=== PATIENT | male | born 1970 | race African-American/Black ===

== ENCOUNTER 2016-04-28 11:49 | Emergency (ER) | payer OTHER ==
[~2016-04-28] VITALS: Ht 182.9 cm; Wt 140.6 kg
[~2016-04-28 11:49] MED LIST: ALBUTEROL0.09 MG/A1 INH; AMLODIPINE BESY10 M1 PO; AMOXIL500 MG PO; ATENOLOL25 MG PO; AUGMENTIN 875-1 EACH PO; CYCLOBENZAPRINE10 M1 PO; GABAPENTIN400 M2 PO; HYDROCHLOROTHIA25 MG PO; HYDRODIURIL 2525 MG PO; NEURONTIN300 MG PO; OXYCODONE-ACET1 EAC1 PO; PERCOCET 325 MG1 TA2 PO; PREDNICOT20 MG PO; PRINIVIL20 M1 PO; Prinivil PO; TESSALON PERLE100 MG PO; TRANDATE100 MG PO; TYLENOL XSTR500 MG PO; VALIUM5 M1 PO; ZITHROMAX250 MG PO
[2016-04-28] MEDS ORDERED: LABETALOL HCL100 M1 PO ×2 (12:18→12:30)
[2016-04-28] MEDS ORDERED: AUGMENTIN 875-1 EACH PO (12:30)
[2016-04-28] MEDS ORDERED: NORVASC10 M1 PO (12:30)
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
[2016-04-28 12:51] VITALS: BP 140/100
[2016-05-20] MEDS ORDERED: MEDROL4 M2 PO (09:55)
[2016-05-20] MEDS ORDERED: NORCO 5-325 TA1 EACH PO (09:55)
== END 2016-04-28 12:52 ==
LOC: ERH 11:49
DX: J32.9 Chronic sinusitis, unspecified (principal); I10 Essential (primary) hypertension; Z72.0 Tobacco use

== ENCOUNTER 2016-05-18 08:34 | Emergency (ER) | payer OTHER ==
[~2016-05-18] VITALS: Ht 182.9 cm; Wt 140.6 kg
[~2016-05-18 08:34] MED LIST changes: +LABETALOL HCL100 M1 PO; +NORVASC10 M1 PO
[2016-05-18 08:37] VITALS: BP 137/88
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
[2016-05-18] MEDS ORDERED: COLCHICINE0.6 M3 PO (09:24)
[2016-05-18] MEDS ORDERED: PERCOCET 5-3251 EACH PO (09:24)
--- NOTE | 2016-05-18 09:36 | RADIOLOGY REPORT ---
EXAMINATION: XR FOOT, RIGHT CLINICAL INFORMATION: First metatarsal pain COMPARISON: None TECHNIQUE: AP, lateral, and oblique views of the right foot. FINDINGS: There is a hallux valgus deformity with mild degenerative changes. No acute osseous finding. IMPRESSION: Hallux valgus deformity with degenerative disease
[2016-05-20] MEDS ORDERED: MEDROL4 M2 PO (09:55)
[2016-05-20] MEDS ORDERED: NORCO 5-325 TA1 EACH PO (09:55)
== END 2016-05-18 09:36 ==
LOC: ERH 08:34
DX: M10.9 Gout, unspecified (principal)
CPT/HCPCS: 73630-RT

== ENCOUNTER 2016-06-27 17:29 | Emergency (ER) | payer OTHER ==
[~2016-06-27] VITALS: Ht 182.9 cm; Wt 142.9 kg
[~2016-06-27 17:29] MED LIST changes: +COLCHICINE0.6 M3 PO; +MEDROL4 M2 PO; +NORCO 5-325 TA1 EACH PO; +PERCOCET 5-3251 EACH PO
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
[2016-06-27] MEDS ORDERED: MOBIC15 M1 PO (19:39)
[2016-06-27] MEDS ORDERED: PERCOCET 5-3251 EACH PO (19:39)
[2016-06-27 19:40] VITALS: BP 137/87
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
== END 2016-06-27 20:02 ==
LOC: ERH 17:29
DX: M67.442 Ganglion, left hand (principal); G89.29 Other chronic pain
CPT/HCPCS: 73130-LT

== ENCOUNTER 2017-02-03 15:31 | Emergency (ER) | payer OTHER ==
[~2017-02-03] VITALS: Ht 182.9 cm; Wt 140.6 kg
[~2017-02-03 15:31] MED LIST changes: +MOBIC15 M1 PO; +ULTRAM50 M1 PO
[2017-02-03 15:38] VITALS: BP 169/106
[2017-02-03 16:07] LABS: ABSOLUTE BASOPHIL COUNT 0 /CUMM (0.0-0.2); ABSOLUTE EOSINOPHIL COUNT 0 /CUMM (0.0-0.7); ABSOLUTE GRANULOCYTE CT 8.5 /CUMM (1.4-6.5); ABSOLUTE LYMPH COUNT 1.8 /CUMM (1.2-3.4); ABSOLUTE MONOCYTE COUNT 0.8 /CUMM (0.10-0.60); BASOPHIL % 0.4 % (0.0-2.0); EOSINOPHIL % 0 % (0-5); MEAN CORPUSCULAR HGB 30.4 PG (27.0-31.0); MEAN CORPUSCULAR HGB CONC 33.1 G/DL (33.0-37.0); MEAN CORPUSCULAR VOLUME 91.8 FL (80.0-94.0); MEAN PLATELET VOLUME 8.9 FL (7.4-10.4); PLATELET COUNT 222 /CUMM (130-400); RBC DISTRIBUTION WIDTH 14.5 % (11.5-14.5); RED BLOOD CELL CT 5.23 /CUMM (4.70-6.10); WHITE BLOOD CELL COUNT 11.1 /CUMM (4.8-10.8)
== END 2017-02-03 15:54 | disposition admitted as inpatient to this hospital (09) ==
LOC: ERH 15:31
PROVIDERS: Emergency Medicine
DX: R11.2 Nausea with vomiting, unspecified (principal); R19.7 Diarrhea, unspecified; I10 Essential (primary) hypertension; R10.9 Unspecified abdominal pain
CPT/HCPCS: 93005; 93010; 99281

== ENCOUNTER 2017-05-02 19:22 | Inpatient (IN) | payer OTHER ==
[~2017-05-02] VITALS: Ht 185.4 cm; Wt 129.7 kg
[2017-05-02 20:42] LABS: ABSOLUTE BASOPHIL COUNT 0.1 /CUMM (0.0-0.2); ABSOLUTE EOSINOPHIL COUNT 0 /CUMM (0.0-0.7); ABSOLUTE GRANULOCYTE CT 7.4 /CUMM (1.4-6.5); ABSOLUTE LYMPH COUNT 2.5 /CUMM (1.2-3.4); ABSOLUTE MONOCYTE COUNT 0.9 /CUMM (0.10-0.60); BASOPHIL % 0.5 % (0.0-2.0); EOSINOPHIL % 0.1 % (0-5); HEMATOCRIT 42.3 % (42-52); MEAN CORPUSCULAR HGB 30.5 PG (27.0-31.0); MEAN CORPUSCULAR HGB CONC 32.8 G/DL (33.0-37.0); MEAN CORPUSCULAR VOLUME 92.9 FL (80.0-94.0); MEAN PLATELET VOLUME 8.8 FL (7.4-10.4); PLATELET COUNT 198 /CUMM (130-400); RBC DISTRIBUTION WIDTH 15.1 % (11.5-14.5); RED BLOOD CELL CT 4.55 /CUMM (4.70-6.10); WHITE BLOOD CELL COUNT 10.9 /CUMM (4.8-10.8)
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
--- NOTE | 2017-05-03 00:42 | RADIOLOGY REPORT ---
EXAMINATION: CHEST 1 VIEW CLINICAL INFORMATION: Chest pain. COMPARISON: 06/12/2015. TECHNIQUE: An AP view of the chest is provided. FINDINGS: The cardiac silhouette is stable. The mediastinal and hilar contours are unremarkable. There are neither pleural effusions nor pneumothoraces. There are no consolidations. The osseous structures are unremarkable. IMPRESSION: No evidence for acute disease.
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
[2017-05-03] MEDS ORDERED: GABAPENTIN100 M2 PO (03:15)
[2017-05-03] MEDS ORDERED: LABETALOL HCL200 M1 PO ×2 (03:16→13:47)
[2017-05-03] MEDS ORDERED: METFORMIN HCL500 M3 PO (03:17)
[2017-05-03] MEDS ORDERED: OXYCODONE HCL10 M2 PO (03:18)
[2017-05-03 08:29] LABS: ABSOLUTE BASOPHIL COUNT 0 /CUMM (0.0-0.2); ABSOLUTE EOSINOPHIL COUNT 0 /CUMM (0.0-0.7); ABSOLUTE GRANULOCYTE CT 5.7 /CUMM (1.4-6.5); ABSOLUTE LYMPH COUNT 3.4 /CUMM (1.2-3.4); BASOPHIL % 0.3 % (0.0-2.0); EOSINOPHIL % 0 % (0-5); GRANULOCYTE % 56.2 % (42.2-75.2); HEMATOCRIT 38.6 % (42-52); MEAN CORPUSCULAR HGB CONC 33.4 G/DL (33.0-37.0); MEAN CORPUSCULAR VOLUME 92.7 FL (80.0-94.0); MEAN PLATELET VOLUME 9.3 FL (7.4-10.4); PLATELET COUNT 187 /CUMM (130-400); RBC DISTRIBUTION WIDTH 14.9 % (11.5-14.5); RED BLOOD CELL CT 4.16 /CUMM (4.70-6.10); WHITE BLOOD CELL COUNT 10.1 /CUMM (4.8-10.8)
--- NOTE | 2017-05-03 11:19 | PN- Att Addend ---
Attending Addendum Attending Brief Note Patient was admitted early this morning for chest pain. Chest pain has improved. His troponin have been negative. His blood pressure was noted to be elevated up to systolic 172. His chest exam is clear. He is slightly tender in the left pectoral area. Left arm has muscle wasting. Plan Obtain cardiac consult Chemical stress test tomorrow Restart hypertension medications and monitor blood pressure Telemetry monitoring Plan is to discharge him home after stress test tomorrow Continue his home dose of oxycodone Current Medications Sig/Yocasta Start time Last Medication Dose Route Stop Time Status Admin Acetaminophen 650 MG Q6P PRN 05/03 0215 AC PO Amlodipine Besylate 10 MG DAILY 05/03 1000 AC 05/03 PO 0957 Amlodipine Besylate 0 .STK-MED ONE 05/03 0911 DC PO Aspirin 81 MG DAILY 05/03 1000 AC 05/03 PO 0957 Aspirin 0 .STK-MED ONE 05/03 0957 DC PO Atorvastatin Calcium 20 MG 1700 05/03 1700 DC PO Atorvastatin Calcium 40 MG 1700 05/03 1700 AC PO Enoxaparin Sodium 40 MG DAILY 05/03 1000 AC 05/03 SC 1023 Enoxaparin Sodium 0 .STK-MED ONE 05/03 0911 DC SC Gabapentin 300 MG TID 05/03 1000 AC 05/03 PO 0957 Gabapentin 0 .STK-MED ONE 05/03 0912 DC PO Insulin Aspart 0 TIDAC 05/03 0800 AC SC Labetalol HCl 200 MG BID 05/03 2200 AC PO Labetalol HCl 200 MG DAILY 05/03 1000 DC 05/03 PO 0957 Oxycodone HCl 0 .STK-MED ONE 05/03 0619 DC PO Oxycodone HCl 10 MG Q6P PRN 05/03 0330 AC 05/03 PO 0618 Oxycodone HCl 0 .STK-MED ONE 05/02 2330 DC PO Oxycodone HCl 10 MG STAT STA 05/02 2317 DC 05/02 PO 05/02 2318 2325 Laboratory Tests 05/03/17 0555: Anion Gap 11, Estimated GFR > 60, BUN/Creatinine Ratio 12.2, Troponin I < 0.01, CBC w Diff NO MAN DIFF REQ, RBC 4.16 L, MCV 92.7, MCH 31.0, MCHC 33.4, RDW 14.9 H, MPV 9.3, Gran % 56.2, Lymphocytes % 33.2, Monocytes % 10.3 H, Eosinophils % 0, Basophils % 0.3, Absolute Granulocytes 5.7, Absolute Lymphocytes 3.4, Absolute Monocytes 1.0 H, Absolute Eosinophils 0, Absolute Basophils 0 05/02/172332: Troponin I < 0.01 05/02/172033: Anion Gap 14, Estimated GFR > 60, BUN/Creatinine Ratio 11.0, Glucose 110 H, Hemoglobin A1c 6.8 H, Calcium 9.9, Total Bilirubin 0.8, AST 17, ALT 25, Alkaline Phosphatase 56, Troponin I < 0.01, Total Protein 7.9, Albumin 4.4, Globulin 3.5, Albumin/Globulin Ratio 1.3, Triglycerides 199 H, Cholesterol 226 H, LDL Cholesterol, Calc 144 H, HDL Cholesterol 43, Cholesterol/HDL Ratio 5 H, CBC w Diff NO MAN DIFF REQ, RBC 4.55 L, MCV 92.9, MCH 30.5, MCHC 32.8 L, RDW 15.1 H, MPV 8.8, Gran % 68.0, Lymphocytes % 23.1, Monocytes % 8.3, Eosinophils % 0.1, Basophils % 0.5, Absolute Granulocytes 7.4 H, Absolute Lymphocytes 2.5, Absolute Monocytes 0.9 H, Absolute Eosinophils 0, Absolute Basophils 0.1 Vital Signs Date Time Temp Pulse Resp B/P B/P Pulse O2 O2 Flow FiO2 Mean Ox Delivery Rate 05/03 1000 98.0 88 18 172/99 97 Room Air 05/03 0957 98.0 88 18 172/99 05/03 0957 98.0 88 18 172/99 05/03 0735 96.7 94 18 159/91 97 Room Air 05/03 0610 97.2 88 20 123/96 97 Room Air 05/03 0130 98.8 91 20 130/82 97 Room Air 05/028 Room Air 05/020 98.3 84 16 149/94 98 Room Air 05/02 1952 98.3 93 18 138/94 97 Room Air Intake & Output 05/03 1600 05/03 0800 05/03 0000 Intake Total 0 Output Total Balance 0 Intake, Oral 0 Patient 320 lb Weight Weight Reported by Patient Measurement Method
--- NOTE | 2017-05-03 13:50 | Patient Discharge Instructions ---
Discharge Instructions General Discharge Information You were seen/treated for: - Chest pain - Hypertension Watch for these problems: Chest pain Shortness of breath Palpitations Lightheadedness, dizziness Special Instructions: - Please see your PCP within one week of discharge. - Please take your medications as prescribed. - Please call your dock guard about possible cardiac catheterization that is scheduled on Monday05/10/17. - Please see your dock guard within one week of discharge. - Please hold metformin, and Lisinopril the night prior to the catheterization; if you undergo any cardiac intervention.please restart metformin after being discharged from [facility]. Diet Continue normal diet: No Recommended Diet: Heart Healthy Acute Coronary Syndrome Inclusion Criteria At DC or during hospital stay patient has or had the following: ACS DIAGNOSIS Yes Discharge Core Measures Meds if any: Prescribed or Continued at Discharge Meds if any: NOT Prescribed or Continued at Discharge Congestive Heart Failure Inclusion Criteria At DC or during hospital stay patient has or had the following: CHF DIAGNOSIS No Discharge Core Measures Meds if any: Prescribed or Continued at Discharge Meds if any: NOT Prescribed or Continued at Discharge Cerebrovascular accident Inclusion Criteria At DC or during hospital stay patient has or had the following: CVA/TIA Diagnosis No Discharge Core Measures Meds if any: Prescribed or Continued at Discharge Meds if any: NOT Prescribed or Continued at Discharge Venous thromboembolism Inclusion Criteria VTE Diagnosis No VTE Type NONE VTE Confirmed by (Test) NONE Discharge Core Measures - Per Current guidelines, there needs to be overlap - treatment for the first 5 days of Warfarin therapy. - If discharged on Warfarin prior to 5 days of - overlap therapy, the patient will need to be - assessed for post discharge needs including - *Post discharge parental anticoagulation - *Warfarin and/or parental anticoagulation education - *Follow up date to check INR post discharge At least 5 days overlap therapy as Inpatient No Meds if any: Prescribed or Continued at Discharge Note: Overlap Therapy is Warfarin and Anticoagulant Meds if any: NOT Prescribed or Continued at Discharge
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
[2017-05-03 21:02] VITALS: BP 160/100
[2017-05-03 23:38] VITALS: BP 118/82
[2017-05-04 06:57] VITALS: BP 154/102
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
[2017-05-04 08:20] LABS: ABSOLUTE BASOPHIL COUNT 0 /CUMM (0.0-0.2); ABSOLUTE EOSINOPHIL COUNT 0 /CUMM (0.0-0.7); ABSOLUTE GRANULOCYTE CT 4.8 /CUMM (1.4-6.5); ABSOLUTE MONOCYTE COUNT 0.7 /CUMM (0.10-0.60); BASOPHIL % 0.2 % (0.0-2.0); EOSINOPHIL % 0 % (0-5); GRANULOCYTE % 56.1 % (42.2-75.2); MEAN CORPUSCULAR HGB 30.5 PG (27.0-31.0); MEAN CORPUSCULAR HGB CONC 32.8 G/DL (33.0-37.0); MEAN CORPUSCULAR VOLUME 93.1 FL (80.0-94.0); MEAN PLATELET VOLUME 9.3 FL (7.4-10.4); PLATELET COUNT 184 /CUMM (130-400); RBC DISTRIBUTION WIDTH 15.2 % (11.5-14.5); RED BLOOD CELL CT 3.97 /CUMM (4.70-6.10); WHITE BLOOD CELL COUNT 8.5 /CUMM (4.8-10.8)
[2017-05-04] MEDS ORDERED: LISINOPRIL10 M1 PO (09:17)
--- NOTE | 2017-05-04 12:17 | PN- Cardiology ---
Subjective Subjective: Chest discomfort resolved. Objective Vital Signs and I&Os Vital Signs Date Time Temp Pulse Resp B/P B/P Pulse O2 O2 Flow FiO2 Mean Ox Delivery Rate 05/04 0709 68 154/102 05/04 0657 97.9 85 20 154/102 93 Room Air 05/03 2338 118/82 05/03 2118 Room Air 05/03 2101 98.6 86 20 160/100 98 Room Air 05/03 2042 73 151/85 05/03 202 93 173/107 05/03 1945 98.4 95 16 173/107 96 Room Air Intake & Output 05/04 1600 05/04 0800 05/04 0000 05/03 1600 05/03 0800 05/03 0000 Intake Total 510 0 Output Total Balance 510 0 Intake, IV 10 Intake, Oral 500 0 Patient 308 lb 308 lb 320 lb Weight Weight Reported by Patient Measurement Method Physical Exam: Well-developed, overweight middle-aged -[place]er male in no acute distress. Vital signs: See above. Neck: No JVD, no bruits. Lungs: Clear to auscultation bilaterally. Heart: S1, S2 with no murmur, gallop, or rub. Abdomen: Soft, nontender, positive bowel sounds. Extremities: No edema. Current Medications: Current Medications Sig/Yocasta Start time Last Medication Dose Route Stop Time Status Admin Acetaminophen 650 MG Q6P PRN 05/03 0215 AC PO Albuterol Sulfate 2 PUF Q4 PRN 05/03 2230 AC INH Amlodipine Besylate 10 MG DAILY 05/03 1000 AC 05/04 PO 0709 Aspirin 81 MG DAILY 05/03 1000 AC 05/03 PO 0957 Atorvastatin Calcium 40 MG 1700 05/03 1700 AC 05/03 PO 2024 Dipyridamole 60 MG ONE ONE 05/04 1100 DC Dextrose/Water 28 ML IV 05/04 1101 Enoxaparin Sodium 40 MG DAILY 05/03 1000 AC 05/03 SC 1023 Gabapentin 0 .STK-MED ONE 05/03 1731 DC PO Gabapentin 300 MG TID 05/03 1000 AC 05/03 PO 2156 Insulin Aspart 0 TIDAC 05/03 0800 AC 05/03 SC 1220 Labetalol HCl 200 MG BID 05/03 2200 DC 05/03 PO 05/04 0000 2023 Lisinopril 10 MG DAILY 05/04 1000 AC PO Melatonin 5 MG ONE TIME ONE 05/03 2199 DC 05/03 PO 05/03 2200 2159 Oxycodone HCl 0 .STK-MED ONE 05/03 1439 DC PO Oxycodone HCl 10 MG Q6P PRN 05/03 0330 AC 05/04 PO 0350 Zolpidem Tartrate 5 MG .STK-MED ONE 05/04 0015 DC PO 05/04 0016 Zolpidem Tartrate 5 MG ONCE ONE 05/03 2345 DC 05/04 PO 05/03 2346 0016 Results Last 48 Hrs of Labs/Mics: Laboratory Tests 05/04/17 0623: CBC w Diff NO MAN DIFF REQ, RBC 3.97 L, MCV 93.1, MCH 30.5, MCHC 32.8 L, RDW 15.2 H, MPV 9.3, Gran % 56.1, Lymphocytes % 34.9, Monocytes % 8.8, Eosinophils % 0, Basophils % 0.2, Absolute Granulocytes 4.8, Absolute Lymphocytes 3.0, Absolute Monocytes 0.7 H, Absolute Eosinophils 0, Absolute Basophils 0 05/03/17 0555: Anion Gap 11, Estimated GFR > 60, BUN/Creatinine Ratio 12.2, Troponin I < 0.01, CBC w Diff NO MAN DIFF REQ, RBC 4.16 L, MCV 92.7, MCH 31.0, MCHC 33.4, RDW 14.9 H, MPV 9.3, Gran % 56.2, Lymphocytes % 33.2, Monocytes % 10.3 H, Eosinophils % 0, Basophils % 0.3, Absolute Granulocytes 5.7, Absolute Lymphocytes 3.4, Absolute Monocytes 1.0 H, Absolute Eosinophils 0, Absolute Basophils 0 05/02/173: Troponin I < 0.01 05/02/172033: Anion Gap 14, Estimated GFR > 60, BUN/Creatinine Ratio 11.0, Glucose 110 H, Hemoglobin A1c 6.8 H, Calcium 9.9, Total Bilirubin 0.8, AST 17, ALT 25, Alkaline Phosphatase 56, Troponin I < 0.01, Total Protein 7.9, Albumin 4.4, Globulin 3.5, Albumin/Globulin Ratio 1.3, Triglycerides 199 H, Cholesterol 226 H, LDL Cholesterol, Calc 144 H, HDL Cholesterol 43, Cholesterol/HDL Ratio 5 H, CBC w Diff NO MAN DIFF REQ, RBC 4.55 L, MCV 92.9, MCH 30.5, MCHC 32.8 L, RDW 15.1 H, MPV 8.8, Gran % 68.0, Lymphocytes % 23.1, Monocytes % 8.3, Eosinophils % 0.1, Basophils % 0.5, Absolute Granulocytes 7.4 H, Absolute Lymphocytes 2.5, Absolute Monocytes 0.9 H, Absolute Eosinophils 0, Absolute Basophils 0.1 Assessment/Plan Assessment/Plan [id number]-o-AA-m w/ hx long-standing tobacco use, previous asthma, recurrent bronchitis, gout, HTN, HLD, DM T2, nephropathy, previous chest pain and medical noncompliance who presented to the ED with c/o CP. Fortunately, he has had no acute ECG changes or evidence of myocardial necrosis by serial Troponins, but given his risk equivalent and multiple risk factors for CAD he underwent a pharmacologic stress test to exclude significant underlying ischemia. Recommendations: * Follow-up on pharmacologic (dipyridamole) stress test and discharge to home for further outpatient evaluation/management if negative for ischemia. * Continue his present and present regimen, but consider the addition of a low- dose thiazide diuretic if his blood pressure remains elevated. * Continue DVT prophylaxis. Continue telemetry? Yes
[2017-05-04 14:18] VITALS: BP 154/96
--- NOTE | 2017-05-04 15:06 | IV DIPYRIDAMOLE NUCLEAR STRESS ---
Clinical Diagnosis: Chest Pain Dressing Room Porter: Mone Charles IV DIPYRIDAMOLE INFUSED: 60 mg IV AMINOPHYLLINE INFUSED: 0 mg PATIENT WEIGHT: 320 lbs INTERPRETATION: The patient's baseline EKG revealed sinus rhythm and nondiagnostic inferolateral T wave abnormalities at 84 BPM. Baseline B/P 150/ 100mm Hg. The patient received 60 mg of dipyridamole infused intravenously over a 4 minute period. TC99M Myoview was injected after dipyridamole infusion. The patient complained of transient chest discomfort that resolved promptly following the administration of IV aminophylline 125 mg X 1. There were no EKG changes seen following pharmacologic infusion. Arrhythmias: None IMPRESSION: The test was supervised by the interpreting File Machine Operator, who was in attendance during the entire test. No EKG evidence of stress induced myocardial ischemia. See separately dictated Nuclear Report.
[2017-05-04 22:53] VITALS: BP 148/98
--- NOTE | 2017-05-05 06:01 | PN- Housestaff ---
Subjective Follow-up For: Chest pain Review of Systems Constitutional: Reports: see HPI. Objective Last 24 Hrs of Vital Signs/I&O Vital Signs Date Time Temp Pulse Resp B/P B/P Pulse O2 O2 Flow FiO2 Mean Ox Delivery Rate 05/04 2253 98.6 96 18 148/98 96 Room Air 05/04 1418 97.6 84 18 154/96 96 Room Air 05/04 1259 68 154/102 05/04 0709 68 154/102 05/04 0657 97.9 85 20 154/102 93 Room Air Intake & Output 05/05 0800 05/05 0000 05/04 1600 Intake Total 300 480 Output Total Balance 300 480 Intake, Oral 300 480 Patient 308 lb Weight Physical Exam General Appearance: No Acute Distress Current Medications: Current Medications Sig/Yocasta Start time Last Medication Dose Route Stop Time Status Admin Acetaminophen 650 MG Q6P PRN 05/03 0215 AC PO Albuterol Sulfate 2 PUF Q4 PRN 05/03 2230 AC INH Aminophylline 125 MG .STK-MED ONE 05/04 1412 DC IV 05/04 1413 Amlodipine Besylate 10 MG DAILY 05/03 1000 AC 05/04 PO 0709 Aspirin 81 MG DAILY 05/03 1000 AC 05/04 PO 1300 Atorvastatin Calcium 40 MG 1700 05/03 1700 AC 05/04 PO 1658 Dipyridamole 60 MG ONE ONE 05/04 1100 DC Dextrose/Water 28 ML IV 05/04 1101 Enoxaparin Sodium 40 MG DAILY 05/03 1000 AC 05/04 SC 1301 Gabapentin 300 MG TID 05/03 1000 AC 05/04 PO 2046 Insulin Aspart 0 TIDAC 05/03 0800 AC 05/03 SC 1220 Lisinopril 10 MG DAILY 05/04 1000 AC 05/04 PO 1259 Oxycodone HCl 10 MG Q6P PRN 05/03 0330 AC 05/04 PO 2322 Patient Medication 1 ED ONE ONE 05/04 1530 DC Teaching ED 05/04 1531 Zolpidem Tartrate 5 MG ONE TIME ONE 05/05 0030 DC 05/05 PO 05/05 0031 0036 Last 24 Hrs of Lab/Jorge Luis Results Last 24 Hrs of Labs/Mics: Laboratory Tests 05/04/17 0623: CBC w Diff NO MAN DIFF REQ, RBC 3.97 L, MCV 93.1, MCH 30.5, MCHC 32.8 L, RDW 15.2 H, MPV 9.3, Gran % 56.1, Lymphocytes % 34.9, Monocytes % 8.8, Eosinophils % 0, Basophils % 0.2, Absolute Granulocytes 4.8, Absolute Lymphocytes 3.0, Absolute Monocytes 0.7 H, Absolute Eosinophils 0, Absolute Basophils 0
[2017-05-05 06:47] VITALS: BP 154/82
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
--- NOTE | 2017-05-05 10:19 | PN- Cardiology ---
Subjective Subjective: No complaints. Feels improved overall. Awaiting rest nuclear images Objective Vital Signs and I&Os Vital Signs Date Time Temp Pulse Resp B/P B/P Pulse O2 O2 Flow FiO2 Mean Ox Delivery Rate 05/05 0647 98.9 87 18 154/82 96 Room Air 05/04 2253 98.6 96 18 148/98 96 Room Air 05/04 1418 97.6 84 18 154/96 96 Room Air 05/04 1259 68 154/102 Intake & Output 05/05 1600 05/05 0800 05/05 0000 05/04 1600 05/04 0800 05/04 0000 Intake Total 110 300 480 510 Output Total Balance 110 300 480 510 Intake, IV 10 10 Intake, Oral 100 300 480 500 Patient 308 lb 308 lb Weight Physical Exam: Well-developed, overweight middle-aged -[place] male in no acute distress. Vital signs: See above. Neck: No JVD, no bruits. Lungs: Clear to auscultation bilaterally. Heart: S1, S2 with no murmur, gallop, or rub. Abdomen: Soft, nontender, positive bowel sounds. Extremities: No edema. Current Medications: Current Medications Sig/Yocasta Start time Last Medication Dose Route Stop Time Status Admin Acetaminophen 650 MG Q6P PRN 05/03 0215 AC PO Albuterol Sulfate 2 PUF Q4 PRN 05/03 2230 AC INH Aminophylline 125 MG .STK-MED ONE 05/04 1412 DC IV 05/04 1413 Amlodipine Besylate 10 MG DAILY 05/03 1000 AC 05/04 PO 0709 Aspirin 81 MG DAILY 05/03 1000 AC 05/04 PO 1300 Atorvastatin Calcium 40 MG 1700 05/03 1700 AC 05/04 PO 1658 Dipyridamole 60 MG ONE ONE 05/04 1100 DC 05/04 Dextrose/Water 28 ML IV 05/04 1101 1100 Enoxaparin Sodium 40 MG DAILY 05/03 1000 AC 05/04 SC 1301 Gabapentin 300 MG TID 05/03 1000 AC 05/04 PO 2046 Insulin Aspart 0 TIDAC 05/03 0800 AC 05/05 SC 0801 Lisinopril 10 MG DAILY 05/04 1000 AC 05/04 PO 1259 Oxycodone HCl 10 MG Q6P PRN 05/03 0330 AC 05/05 PO 0606 Patient Medication 1 ED ONE ONE 05/04 1530 DC 05/05 Teaching ED 05/04 1531 0701 Zolpidem Tartrate 5 MG ONE TIME ONE 05/05 0030 DC 05/05 PO 05/05 0031 0036 Results Last 48 Hrs of Labs/Mics: Laboratory Tests 05/04/17 0623: CBC w Diff NO MAN DIFF REQ, RBC 3.97 L, MCV 93.1, MCH 30.5, MCHC 32.8 L, RDW 15.2 H, MPV 9.3, Gran % 56.1, Lymphocytes % 34.9, Monocytes % 8.8, Eosinophils % 0, Basophils % 0.2, Absolute Granulocytes 4.8, Absolute Lymphocytes 3.0, Absolute Monocytes 0.7 H, Absolute Eosinophils 0, Absolute Basophils 0 Assessment/Plan Assessment/Plan [id number] w/ hx long-standing tobacco use, previous asthma, recurrent bronchitis, gout, HTN, HLD, DM T2, nephropathy, previous chest pain and medical noncompliance who presented to the ED with c/o CP. Fortunately, he has had no acute ECG changes or evidence of myocardial necrosis by serial Troponins, but given his risk equivalent and multiple risk factors for CAD he underwent a pharmacologic stress test to exclude significant underlying ischemia with the rest images pending. Recommendations: * Follow-up on pharmacologic (dipyridamole) stress test and discharge to home for further outpatient evaluation/management if negative for ischemia. * Continue his present antihypertensive regimen, but consider the addition of a low-dose thiazide diuretic if his blood pressure remains elevated. * DVT prophylaxis until discharge. Continue telemetry? No
[2017-05-05 11:24] VITALS: BP 142/96
[2017-05-05 14:11] VITALS: BP 152/106
--- NOTE | 2017-05-05 14:14 | NUCLEAR MEDICINE REPORT ---
PERSANTINE STRESS AND RESTING SPECT MYOCARDIAL PERFUSION IMAGING STUDY WITH GATED SPECT IMAGES: CLINICAL INDICATION: Atypical chest pain. PROCEDURE: Regional myocardial perfusion was assessed using a 2 day protocol. Stress images were obtained on 05/04/2017 following the intravenous administration of 41.6 mCi Tc 99m Myoview. Stress consisted of 60 mg Persantine given intravenously. Following the sestamibi injection, 125 mg aminophylline was given intravenously. Rest images were obtained 05/05/2017 following the intravenous administration of 47.4 mCi Technetium 99m Myoview. Single photon emission tomographic (SPECT) images were obtained. SPECT images were acquired in a 64 x 64 matrix of 64 projections over 180 degrees. These were reconstructed into standard short axis, horizontal and vertical long axis cardiac projections. FINDINGS: The post stress images show the left ventricular chamber to be mildly dilated. There is a small region of markedly diminished activity present at the apex. The activity in the other morales appears normal. The rest images show improvement of the small abnormality present at the apex with no significant abnormalities. Appendix present on the rest images. The other morales are unchanged from the post stress images and appear normal. The images were obtained using a gated SPECT technique, which permits visualization of wall motion and calculation of the left ventricular ejection fraction. The left ventricular chamber is mildly dilated. Mild diffuse left ventricular hypokinesis is probably present, but there is no focal wall motion abnormality present. The calculated left ventricular ejection fraction is 45% on the stress study. No previous study is available for comparison. IMPRESSION: A small region of reversible ischemia is present at the apex. No other perfusion abnormalities are present. Left ventricular chamber is mildly dilated and mild diffuse left ventricular hypokinesis is probably present, but there is no focal wall motion abnormality present. Left ventricular ejection fraction is minimally depressed.
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
[2017-05-05 22:33] VITALS: BP 150/92
[2017-05-06 06:49] VITALS: BP 152/98
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
--- NOTE | 2017-05-06 11:27 | PN- Att Addend ---
Attending Addendum Attending Brief Note Patient seen and examined. Plan of care discussed with the medical team and the patient. Available lab work and radiology test reports were reviewed. Patient had recurrent left upper chest pain last night. He was given sublingual nitroglycerin gr after which patient's chest pain went away. Patient denies any nausea vomiting or associated sweating. He did not have any dizziness or palpitations either. He did not have a good sleep last night. Exam: General: Patient awake alert oriented without any distress; appears anxious CVS: S1 plus S2 without any murmur or gallops Chest: Few scattered crepitation without any wheeze. There is no respiratory distress. 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 * Please convert patient observation status to admission * Keep nothing by mouth post midnight on Monday * Repeat EKG patient also current chest pain and trend troponins Current Medications Sig/Yocasta Start time Last Medication Dose Route Stop Time Status Admin Acetaminophen 650 MG Q6P PRN 05/03 0215 AC PO Albuterol Sulfate 2 PUF Q4 PRN 05/03 2230 AC INH Amlodipine Besylate 10 MG DAILY 05/03 1000 AC 05/06 PO 0813 Aspirin 81 MG DAILY 05/03 1000 AC 05/06 PO 0812 Atorvastatin Calcium 40 MG 1700 05/03 1700 AC 05/05 PO 1707 Enoxaparin Sodium 40 MG DAILY 05/03 1000 AC 05/06 SC 0813 Gabapentin 300 MG TID 05/03 1000 AC 05/06 PO 0812 Insulin Aspart 0 TIDAC 05/03 0800 AC 05/05 SC 1709 Labetalol HCl 200 MG BID 05/05 1415 AC 05/06 PO 0813 Lisinopril 10 MG DAILY 05/04 1000 AC 05/06 PO 0813 Nitroglycerin 0.4 MG Q 5 MINUTES X 3 DO.. 05/06 0630 AC 05/06 SL 0633 Oxycodone HCl 10 MG Q6P PRN 05/03 0330 AC 05/06 PO 0556 Patient Medication 1 ED ONE ONE 05/05 1230 DC 05/05 Teaching ED 05/05 1231 1236 Zolpidem Tartrate 5 MG ONCE ONE 05/06 0015 DC 05/06 PO 05/06 0016 0013 Laboratory Tests 05/06/17 0635: Troponin I < 0.01 05/04/17 0623: CBC w Diff NO MAN DIFF REQ, RBC 3.97 L, MCV 93.1, MCH 30.5, MCHC 32.8 L, RDW 15.2 H, MPV 9.3, Gran % 56.1, Lymphocytes % 34.9, Monocytes % 8.8, Eosinophils % 0, Basophils % 0.2, Absolute Granulocytes 4.8, Absolute Lymphocytes 3.0, Absolute Monocytes 0.7 H, Absolute Eosinophils 0, Absolute Basophils 0 Vital Signs Date Time Temp Pulse Resp B/P B/P Pulse O2 O2 Flow FiO2 Mean Ox Delivery Rate 05/06 0813 84 152/98 05/06 0813 84 152/98 05/06 0813 84 152/98 05/06 0649 97.7 84 24 152/98 96 05/05 2233 150/92 05/05 2109 87 150/94 05/05 1528 87 152/106 05/05 1411 97.6 87 18 152/106 95 Room Air 05/05 1131 70 142/96 05/05 1131 70 142/96 Intake & Output 05/06 1600 05/06 0800 05/06 0000 Intake Total 400 600 Output Total Balance 400 600 Intake, Oral 400 600 Patient 284 lb Weight Weight Bed scale Measurement Method
--- NOTE | 2017-05-06 13:01 | PN- Cardiology ---
Subjective Subjective: Patient is currently resting comfortably but he did report a recurrent episode of chest discomfort this morning; lasted a few minutes and is now resolved.. Objective Vital Signs and I&Os Vital Signs Date Time Temp Pulse Resp B/P B/P Pulse O2 O2 Flow FiO2 Mean Ox Delivery Rate 05/06 0813 84 152/98 05/06 0813 84 152/98 05/06 0813 84 152/98 05/06 0649 97.7 84 24 152/98 96 05/05 2233 150/92 05/05 2109 87 150/94 05/05 1528 87 152/106 05/05 1411 97.6 87 18 152/106 95 Room Air Intake & Output 05/06 1600 05/06 0800 05/06 0000 05/05 1600 05/05 0805/05 0000 Intake Total 400 600 660 110 300 Output Total Balance 400 600 660 110 300 Intake, IV 20 10 Intake, Oral 400 600 640 100 300 Patient 284 lb Weight Weight Bed scale Measurement Method Physical Exam: General: no apparent distress. Alert. Overweight Eyes: No obvious scleral icterus. HEENT: No jugular venous distention or abnormal jugular venous pulsations. Cardiovascular: Normal intensity S1/S2. Regular Respiratory: Lungs clear to auscultation bilaterally. Abdomen: Soft, nontender with no guarding or rebound tenderness. Musculoskeletal: No clubbing or cyanosis noted Skin: No obvious rashes or ulcerations. Neurologic: No gross focal deficits noted. Current Medications: Current Medications Sig/Yocasta Start time Last Medication Dose Route Stop Time Status Admin Acetaminophen 650 MG Q6P PRN 05/03 0215 AC PO Albuterol Sulfate 2 PUF Q4 PRN 05/03 2230 AC INH Amlodipine Besylate 10 MG DAILY 05/03 1000 AC 05/06 PO 0813 Aspirin 81 MG DAILY 05/03 1000 AC 05/06 PO 0812 Atorvastatin Calcium 40 MG 1700 05/03 1700 AC 05/05 PO 1707 Enoxaparin Sodium 40 MG DAILY 05/03 1000 AC 05/06 SC 0813 Gabapentin 300 MG TID 05/03 1000 AC 05/06 PO 0812 Insulin Aspart 0 TIDAC 05/03 0800 AC 05/06 SC 1142 Labetalol HCl 200 MG BID 05/05 1415 AC 05/06 PO 0813 Lisinopril 10 MG DAILY 05/04 1000 AC 05/06 PO 0813 Nitroglycerin 0.4 MG Q 5 MINUTES X 3 DO.. 05/06 0630 AC 05/06 SL 0633 Oxycodone HCl 10 MG Q6P PRN 05/03 0330 AC 05/06 PO 0556 Zolpidem Tartrate 5 MG ONCE ONE 05/06 0015 DC 05/06 PO 05/06 0016 0013 Results Last 48 Hrs of Labs/Mics: Laboratory Tests 05/06/17 0635: Troponin I < 0.01 Recent Imaging Studies: Telemetry tracings are personally reviewed and showed sinus rhythm Nuclear stress test IMPRESSION: A small region of reversible ischemia is present at the apex. No other perfusion abnormalities are present. Left ventricular chamber is mildly dilated and mild diffuse left ventricular hypokinesis is probably present, but there is no focal wall motion abnormality present. Left ventricular ejection fraction is minimally depressed. Assessment/Plan Assessment/Plan 1. Atypical chest pain, recurrent 2. Abnormal nuclear stress test 3. History of tobacco use 4. Diabetes 5. Hypertension The patient did have another episode of chest discomfort which is now resolved. Serial troponins remain negative but nuclear stress test as above was abnormal. Discussed the plan with the patient including the risks versus benefits of various options and at this time he wishes to proceed with cardiac catheterization on Monday. He should be n.p.o. after midnight on Monday. Would not initiate on heparin drip at this time given the normal troponins. Nuclear stress test did report possible LV dysfunction; would obtain an echocardiogram for additional ejection fraction assessment. Continue on aspirin and statin therapy; would hold the DARIO inhibitor prior to cardiac catheterization. Case was discussed with the medical team at length today. Manolo Mancilla MD [facility] Continue telemetry? Yes
[2017-05-06 14:58] VITALS: BP 150/80
[2017-05-06 23:07] VITALS: BP 126/72
[2017-05-07 07:10] VITALS: BP 110/88
[2017-05-07 08:22] LABS: ABSOLUTE BASOPHIL COUNT 0 /CUMM (0.0-0.2); ABSOLUTE EOSINOPHIL COUNT 0 /CUMM (0.0-0.7); ABSOLUTE GRANULOCYTE CT 4.1 /CUMM (1.4-6.5); ABSOLUTE MONOCYTE COUNT 0.7 /CUMM (0.10-0.60); BASOPHIL % 0.1 % (0.0-2.0); EOSINOPHIL % 0 % (0-5); HEMATOCRIT 36.7 % (42-52); MEAN CORPUSCULAR HGB 30.9 PG (27.0-31.0); MEAN CORPUSCULAR HGB CONC 33.2 G/DL (33.0-37.0); MEAN PLATELET VOLUME 8.8 FL (7.4-10.4); PLATELET COUNT 218 /CUMM (130-400); RBC DISTRIBUTION WIDTH 14.9 % (11.5-14.5); RED BLOOD CELL CT 3.94 /CUMM (4.70-6.10); WHITE BLOOD CELL COUNT 7.9 /CUMM (4.8-10.8)
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
[2017-05-07 11:29] VITALS: BP 120/96
--- NOTE | 2017-05-07 12:48 | PN- Cardiology ---
Subjective Subjective: Patient is resting comfortably. Denies recurrent chest pain. Did have some mild dyspnea today. Objective Vital Signs and I&Os Vital Signs Date Time Temp Pulse Resp B/P B/P Pulse O2 O2 Flow FiO2 Mean Ox Delivery Rate 05/07 1135 85 130/96 05/07 1134 85 130/96 05/07 1134 85 130/96 05/07 1129 90 120/96 05/07 0710 98.3 95 24 110/88 97 05/06 2307 98.7 89 20 126/72 94 05/06 2142 94 126/70 05/06 2140 94 126/70 05/06 1458 97.9 93 20 150/80 95 Room Air Intake & Output 05/07 1600 05/07 0805/07 0000 05/06 1600 05/06 0805/06 0000 Intake Total 450 600 800 400 600 Output Total Balance 450 600 800 400 600 Intake, Oral 450 600 800 400 600 Number 1 Bowel Movements Patient 286 lb 335 lb 284 lb Weight Weight Bed scale Bed scale Measurement Method Physical Exam: General: no apparent distress. Alert. Overweight Eyes: No obvious scleral icterus. HEENT: No jugular venous distention or abnormal jugular venous pulsations. Cardiovascular: Normal intensity S1/S2. Regular Respiratory: Lungs clear to auscultation bilaterally. Abdomen: Soft, nontender with no guarding or rebound tenderness. Musculoskeletal: No clubbing or cyanosis noted Skin: No obvious rashes or ulcerations. Neurologic: No gross focal deficits noted. Current Medications: Current Medications Sig/Yocasta Start time Last Medication Dose Route Stop Time Status Admin Acetaminophen 650 MG Q6P PRN 05/03 0215 AC PO Albuterol Sulfate 2 PUF Q4 PRN 05/03 2230 AC INH Amlodipine Besylate 10 MG DAILY 05/03 1000 AC 05/07 PO 1134 Aspirin 81 MG DAILY 05/03 1000 AC 05/07 PO 1134 Atorvastatin Calcium 80 MG 1700 05/06 1700 AC 05/06 PO 1737 Atorvastatin Calcium 40 MG 1700 05/03 1700 DC 05/05 PO 1707 Enoxaparin Sodium 40 MG DAILY 05/03 1000 AC 05/07 SC 1134 Gabapentin 300 MG TID 05/03 1000 AC 05/07 PO 1134 Insulin Aspart 0 TIDAC 05/03 0800 AC 05/07 SC 1221 Labetalol HCl 200 MG BID 05/05 1415 AC 05/07 PO 1135 Lisinopril 10 MG DAILY 05/04 1000 DC 05/06 PO 0813 Metoprolol Tartrate 25 MG BID 05/06 2200 AC 05/07 PO 1134 Nitroglycerin 0.5 GM Q6 05/07 1200 AC 05/07 TOP 1218 Nitroglycerin 0.5 GM Q6 05/06 1800 DC 05/07 TOP 0609 Nitroglycerin 0.4 MG Q 5 MINUTES X 3 DO.. 05/06 0630 AC 05/06 SL 0633 Oxycodone HCl 10 MG Q6P PRN 05/03 0330 AC 05/07 PO 0854 Zolpidem Tartrate 5 MG ONCE ONE 05/07 0245 DC 05/07 PO 05/07 0246 0247 Results Last 48 Hrs of Labs/Mics: Laboratory Tests 05/07/17 0605: Anion Gap 12, Estimated GFR > 60, BUN/Creatinine Ratio 12.2, CBC w Diff NO MAN DIFF REQ, RBC 3.94 L, MCV 93.0, MCH 30.9, MCHC 33.2, RDW 14.9 H, MPV 8.8, Gran % 52.0, Lymphocytes % 38.7, Monocytes % 9.2, Eosinophils % 0, Basophils % 0.1, Absolute Granulocytes 4.1, Absolute Lymphocytes 3.0, Absolute Monocytes 0.7 H, Absolute Eosinophils 0, Absolute Basophils 0 05/06/17 0635: Troponin I < 0.01 Recent Imaging Studies: Telemetry tracings were personally reviewed and shows sinus rhythm Assessment/Plan Assessment/Plan 1. Atypical chest pain, recurrent 2. Abnormal nuclear stress test 3. History of tobacco use 4. Diabetes 5. Hypertension Resting comfortably and remains hemodynamically stable. Given the recurrent chest discomfort with abnormal nuclear stress test he should be n.p.o. after midnight with planned to likely transfer for cardiac catheterization tomorrow. Echocardiogram is pending as the nuclear stress test did report possible LV dysfunction. Discussed risks versus benefits of cardiac catheterization and he does wish to proceed with the procedure. Manolo Mancilla MD [facility] Continue telemetry? Yes
[2017-05-07 14:09] VITALS: BP 110/60
[2017-05-07 23:00] VITALS: BP 108/80
[2017-05-08 06:57] VITALS: BP 120/90
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
[2017-05-08] MEDS ORDERED: ATORVASTATIN CA80 M1 PO ×2 (08:36→14:47)
[2017-05-08] MEDS ORDERED: METOPROLOL TART25 M1 PO ×2 (11:59→14:47)
[2017-05-08] MEDS ORDERED: ASPIRIN81 M4 PO ×2 (11:59→14:47)
--- NOTE | 2017-05-08 12:20 | PN- Cardiology ---
Subjective Subjective: * No chest pain since Monday. * Stress test showed a small area of apical ischemia. Objective Vital Signs and I&Os Vital Signs Date Time Temp Pulse Resp B/P B/P Pulse O2 O2 Flow FiO2 Mean Ox Delivery Rate 05/08 824 87 120/90 05/08 08 87 120/90 05/08 08 87 120/90 05/08 0657 98.2 87 20 120/90 96 Room Air 05/07 2300 97.9 84 20 108/80 96 05/07 2246 96 144/80 05/07 2246 96 144/80 05/07 1409 97.5 89 22 110/60 96 Room Air Intake & Output 05/08 1600 05/08 0000 05/07 1600 05/07 0000 Intake Total 600 1260 800 450 600 Output Total Balance 600 1260 800 450 600 Intake, IV 600 Intake, Oral 0 1260 800 450 600 Patient 286 lb 335 lb Weight Weight Bed scale Measurement Method Physical Exam: General: WD/overweight male in NAD; alert and oriented x 3 NEck: no JVD Heart: RRR Lungs: clear bilaterally Extremities: no edema Assessment/Plan Assessment/Plan * This patient has been discomfort free for about two days and has normal cardiac enzymes with only a small region of ischemia in the apex which is not thought to be life threatening. We will pursue a cardiac catheterization which is not felt to be emergent and which can be done as an outpatient on Monday. The patient can be discharged on his current medication including aspirin, Atorvastatin, Lisinopril and Labetolol. He should also be on a NTG patch at o.4mg/hr for 12 hours daily. The patient does request staying in the hospital due to social issues. Continue telemetry? No
[2017-05-08] MEDS ORDERED: NITROGLYCERIN1 EACH TOP ×2 (12:57→14:47)
[2017-05-08] MEDS ORDERED: LISINOPRIL10 M1 PO (14:47)
[2017-05-08] MEDS ORDERED: LABETALOL HCL200 M1 PO (14:47)
[2017-05-08 14:54] VITALS: BP 128/90
--- NOTE | 2017-05-09 07:31 | ECHOCARDIOGRAM REPORT ---
OPAL LUCAS Age: 47 : 1970 Gender: M Exam Date: 05/08/2017 10:42 Exam Location: [address] [facility] Ht (in): 72 Wt (lb): 284 BSA: 2.61 BP: 120 / 90 Ordering Physician: Stephane Alvarado MD Referring Physician: Stephane Alvarado MD Technologist: Florentino Boone [facility] Room Number: 189-1 Indications: Chest Pain Rhythm: Sinus Technical Quality: good FINDINGS Left Ventricle Normal left ventricular size with mild left ventricular hypertrophy. Normal systolic function with no obvious regional wall motion abnormalities. Normal left ventricular diastolic filling pattern for age. The ejection fraction is visually estimated at 55%. Right Ventricle The right ventricle is normal in size and function. Right Atrium The right atrium is normal in size. Left Atrium The left atrium is normal in size. The interatrial septum is intact. Mitral Valve The mitral valve is normal in structure and function. There is mild mitral regurgitation. Aortic Valve Structurally normal aortic valve without significant sclerosis or stenosis. There is no aortic regurgitation. Tricuspid Valve The tricuspid valve is normal in structure and function. There is mild tricuspid regurgitation. Pulmonary artery systolic pressure is normal. Pulmonic Valve Structurally normal pulmonic valve. There is no pulmonic regurgitation. Pericardium Normal pericardium without effusion. No pleural effusion. Great Vessels Normal aortic root dimension. The aortic arch and great vessels are well seen and are normal. CONCLUSIONS 1. Normal EF of 55%. 2. Mild left ventricular hypertrophy. 3. Mild mitral regurgitation. 4. Mild tricuspid regurgitation. Sae Woods M.D. (Electronically Signed) Final Date: 09 May 2017 07:31 MEASUREMENTS (Male / Female) Normal Values 2D ECHO LV Diastolic Diameter PLAX 5.4 cm 4.2 - 5.9 / 3.9 - 5.3 cm LV Systolic Diameter PLAX 4.0 cm 2.1 - 4.0 cm LV Fractional Shortening PLAX 25.9 % 25 - 46 % LV Ejection Fraction 2D Teich 50.5 % IVS Diastolic Thickness 1.4 cm LVPW Diastolic Thickness 1.2 cm LV Relative Wall Thickness 0.5 RV Internal Dim ED PLAX 3.7 cm 1.9 - 3.8 cm LVOT Diameter 2.6 cm Aortic Root Diameter 3.5 cm LA Systolic Diameter LX 4.0 cm 3.0 - 4.0 / 2.7 - 3.8 cm Ascending Aorta Diameter 3.0 cm DOPPLER AV Peak Velocity 105.0 cm/s AV Peak Gradient 4.4 mmHg AV Mean Velocity 68.3 cm/s AV Mean Gradient 2.0 mmHg AV Velocity Time Integral 19.4 cm LVOT Peak Velocity 62.4 cm/s LVOT Peak Gradient 1.6 mmHg LVOT Mean Velocity 40.5 cm/s LVOT Mean Gradient 1.0 mmHg LVOT Velocity Time Integral 12.6 cm LVOT Stroke Volume 66.9 cm AV Area Cont Eq vti 3.4 cm AV Area Cont Eq pk 3.2 cm MV Peak Velocity 67.6 cm/s MV Peak Gradient 1.8 mmHg MV Mean Velocity 47.6 cm/s MV Mean Gradient 1.0 mmHg Mitral E Point Velocity 58.7 cm/s Mitral A Point Velocity 48.4 cm/s Mitral E to A Ratio 1.2 MV PHT Velocity 70.6 cm/s MV Deceleration [place] 276.0 cm/s MV Pressure Half Time 76.7 ms MV Area PHT 2.9 cm MV Deceleration Time 324.0 ms TR Peak Velocity 257.0 cm/s TR Peak Gradient 26.4 mmHg Right Atrial Pressure 10.0 mmHg Pulmonary Artery Systolic Pressu 36.4 mmHg Right Ventricular Systolic Press 36.4 mmHg PV Peak Velocity 93.7 cm/s PV Peak Gradient 3.5 mmHg PV Mean Velocity 65.1 cm/s PV Mean Gradient 2.0 mmHg PV Velocity Time Integral 22.8 cm LV E' Lateral Velocity 12.5 cm/s Mitral E to LV E' Lateral Ratio 4.7 LV E' Septal Velocity 10.2 cm/s Mitral E to LV E' Septal Ratio 5.8
== END 2017-05-08 15:50 | DRG 198 ==
LOC: ERH 19:22 → ERHI 05-03 00:56 → 1NO 05-03 00:56 → ERHI 05-03 08:06 → ENRESERV 05-03 19:28 → ENTRNSPT 05-03 20:28 → EDTRNSPTSTS 05-03 20:41 → EDTRNSPT 05-03 20:41 → 1NO 05-03 20:53 → CMPTRNSPT 05-03 21:00 → 1NO 05-06 16:10
PROVIDERS: Emergency Medicine; Hospitalist
DX: I25.119 Atherosclerotic heart disease of native coronary artery with unspecified angina pectoris (principal); Z79.84 Long term (current) use of oral hypoglycemic drugs; I10 Essential (primary) hypertension; E78.5 Hyperlipidemia, unspecified; E11.40 Type 2 diabetes mellitus with diabetic neuropathy, unspecified; M10.9 Gout, unspecified; E66.01 Morbid (severe) obesity due to excess calories; Z68.37 Body mass index [BMI] 37.0-37.9, adult; G89.29 Other chronic pain; F17.210 Nicotine dependence, cigarettes, uncomplicated; Z79.891 Long term (current) use of opiate analgesic; Z96.7 Presence of other bone and tendon implants; F10.10 Alcohol abuse, uncomplicated; Z88.6 Allergy status to analgesic agent; Z88.8 Allergy status to other drugs, medicaments and biological substances; I25.2 Old myocardial infarction; J45.909 Unspecified asthma, uncomplicated
CPT/HCPCS: 1NSP; 36592; 71045; 78452; 82436; 93005; 93010; 93016; 93017; 93306; 99291; A9502; J1245; J1650; J1815; J3490; J7042

== ENCOUNTER 2017-05-12 08:36 | Emergency (ER) | payer OTHER ==
[~2017-05-12] VITALS: Ht 182.9 cm; Wt 138.3 kg
[~2017-05-12 08:36] MED LIST changes: +ASPIRIN81 M4 PO; +ATORVASTATIN CA80 M1 PO; +GABAPENTIN100 M2 PO; +LABETALOL HCL200 M1 PO; +LISINOPRIL10 M1 PO; +METFORMIN HCL500 M3 PO; +METOPROLOL TART25 M1 PO; +NITROGLYCERIN1 EACH TOP; +OXYCODONE HCL10 M2 PO
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
[2017-05-12 09:24] LABS: ABSOLUTE EOSINOPHIL COUNT 0 /CUMM (0.0-0.7); ABSOLUTE MONOCYTE COUNT 1.1 /CUMM (0.10-0.60)
[2017-05-12 09:31] LABS: ABSOLUTE BASOPHIL COUNT 0 /CUMM (0.0-0.2); BASOPHIL % 0.1 % (0.0-2.0); EOSINOPHIL % 0 % (0-5); GRANULOCYTE % 61.4 % (42.2-75.2); HEMATOCRIT 39.4 % (42-52); MEAN CORPUSCULAR HGB 31.1 PG (27.0-31.0); MEAN CORPUSCULAR HGB CONC 33.5 G/DL (33.0-37.0); MEAN CORPUSCULAR VOLUME 92.9 FL (80.0-94.0); MEAN PLATELET VOLUME 8.4 FL (7.4-10.4); PLATELET COUNT 260 /CUMM (130-400); RED BLOOD CELL CT 4.24 /CUMM (4.70-6.10)
[2017-05-12 09:32] LABS: WHITE BLOOD CELL COUNT 13.1 /CUMM (4.8-10.8)
[2017-05-12 09:33] LABS: PT 11.4 SEC (9.4-12.5); PTT 31 SEC (25-37)
--- NOTE | 2017-05-12 11:34 | CT SCAN REPORT ---
EXAMINATION: CT ABDOMEN AND PELVIS WITHOUT CONTRAST CLINICAL INFORMATION: Left lower quadrant pain, bleeding with bowel movements COMPARISON: None TECHNIQUE: Multidetector volumetric imaging was performed from the superior aspect of the liver through the pubic symphysis. Sagittal and coronal reformatted images were obtained on the technologist's workstation. DLP: 1396.43 mGy-cm FINDINGS: LUNG BASES: The visualized lung bases are unremarkable. LIVER, GALLBLADDER, AND BILIARY TREE: The liver is normal in size, shape, and attenuation. No focal hepatic lesion or biliary ductal dilatation is present. The gallbladder is unremarkable with no evidence of radiopaque gallstones, gallbladder wall thickening, or obvious pericholecystic inflammatory changes. PANCREAS: Unremarkable. SPLEEN: Unremarkable. ADRENAL GLANDS: Unremarkable. KIDNEYS AND URETERS: The kidneys are normal in size, shape, and attenuation. There is an exophytic 2.2 cm cyst off the posterior left kidney. Smaller right renal cysts are also noted. No hydronephrosis, hydroureter, or calculi seen. No perinephric stranding. BLADDER: Unremarkable. GASTROINTESTINAL TRACT: The small and large bowel are unremarkable, without evidence of inflammation or obstruction. The appendix is unremarkable. ABDOMINAL WALL: There is a small fat-containing right inguinal hernia. LYMPH NODES: Normal. VASCULAR: Unremarkable. PELVIC VISCERA: Unremarkable. OSSEOUS STRUCTURES: There are scattered degenerative changes in the spine, including redemonstrated degenerative disc disease at L4-L5 with annular calcification IMPRESSION: No acute findings identified in the abdomen/pelvis. No acute bowel abnormality.
[2017-05-12 11:36] VITALS: BP 143/88
[2017-05-12] MEDS ORDERED: LEVSIN-SL0.125 MG SL (11:47)
[2017-05-12] MEDS ORDERED: ZOFRAN ODT4 M1 SL (11:47)
== END 2017-05-12 12:06 ==
LOC: ERH 08:36
PROVIDERS: Physician Assistant
DX: R10.32 Left lower quadrant pain (principal)
CPT/HCPCS: 74176; 96361; 96374; J7040